=== PATIENT | female | born 1990 | race American Indian/Alaskan Native ===

== ENCOUNTER 2017-06-17 11:28 | Emergency (ER) | payer SELFPAY ==
[2017-06-17] MEDS ORDERED: TYLENOL PO ONE (12:28)
--- NOTE | 2017-06-17 16:27 | Emergency Department Report ---
HPI - General Chief Complaint: Fever Time Seen by Provider: 06/17/17 15:41 - HPI HPI: 26-year-old female presents today complaining of sore throat, body aches, headache, cough, diarrhea 4 days. Patient has tried TheraFlu and Coricidin without relief. Denies nausea, vomiting, chest pain, shortness of breath, abdominal pain. Patient complains of painful swallowing. ED Past Medical Hx - Past Medical History Previous Medical History?: No - Surgical History Past Surgical History?: No - Social History Smoking Status: Never Smoker Substance Use Type: None - Medications Home Medications: Home Medications Medication Instructions Recorded Confirmed Last Taken Type Acetamin/Codeine 120-12Mg/5 ml 5 ml PO TID PRN #150 ml 06/17/17 Unknown Rx [Tylenol/Codeine] Amoxicillin/Potassium Clav 1 each PO BID #20 tablet 06/17/17 Unknown Rx [Augmentin 875-125 Tablet] Lidocaine Viscous 2% 15 ml MM TID #90 ml 06/17/17 Unknown Rx ED Review of Systems ROS: Stated complaint: FLU SX Other details as noted in HPI Constitutional: fever, malaise. denies: chills Eyes: denies: eye pain ENT: throat pain. denies: ear pain, congestion Respiratory: cough. denies: shortness of breath, wheezing Cardiovascular: denies: chest pain, palpitations Endocrine: no symptoms reported Gastrointestinal: denies: abdominal pain, nausea, vomiting Skin: denies: rash, lesions Neurological: headache. denies: weakness, numbness, paresthesias Physical Exam - Physical Exam Vital Signs: Vital Signs 06/17/17 06/17/17 12:26 12:53 Temperature 102.6 F H Pulse Rate 105 H Respiratory 18 18 Rate Blood Pressure 121/68 O2 Sat by Pulse 100 Oximetry Physical Exam: GENERAL: The patient is well-developed and well-nourished. Appears ill. HEAD: Normocephalic. Atraumatic. No sinus tenderness to palpation. EYES: Extraocular motions are intact, PERRL. EARS: External auditory canals and tympanic membranes clear; hearing grossly intact. NOSE: Congested nasal mucosa. THROAT: Erythematous posterior pharynx. Bilateral tonsillomegaly with tonsillar exudates noted. NECK: positive for anterior cervical lymphadenopathy. CHEST/LUNGS: Clear to auscultation throughout. HEART/CARDIOVASCULAR: Regular rate and rhythm. No murmurs, rubs or gallops. ABDOMEN: Abdomen is soft, nontender. Bowel sounds normoactive. No guarding or rebound tenderness. EXTREMITIES: Peripheral pulses intact. Capillary refill less than 2 seconds. NEURO: Alert and oriented x 3. Normal gait. ED Course Vital Signs 06/17/17 06/17/17 12:26 12:53 Temperature 102.6 F H Pulse Rate 105 H Respiratory 18 18 Rate Blood Pressure 121/68 O2 Sat by Pulse 100 Oximetry ED Medical Decision Making - Lab Data Vital Signs 06/17/17 06/17/17 06/17/17 12:26 12:53 16:50 Temperature 102.6 F H Pulse Rate 105 H 102 H Respiratory 18 18 Rate Blood Pressure 121/68 117/59 Blood Pressure [Left] O2 Sat by Pulse 100 100 Oximetry 06/17/17 06/17/17 18:54 20:17 Temperature 102.8 F H 99.8 F H Pulse Rate 93 H Respiratory 18 Rate Blood Pressure Blood Pressure 125/76 [Left] O2 Sat by Pulse 97 Oximetry - Medical Decision Making 26-year-old female presents complaining of sore throat, body, headache, cough and diarrhea 4 days. Her rapid flu and rapid strep test came back negative. However based on patient's presentation she will be treated with antibiotics. Patient is in no acute distress at this time. She will be discharged home and is encouraged to follow up with a primary care provider. She will be sent home on Augmentin, Tylenol with Codeine and Viscous lidocaine and is encouraged to return to the emergency room for any worsening symptoms. Critical care attestation.: If time is entered above; I have spent that time in minutes in the direct care of this critically ill patient, excluding procedure time. ED Disposition Clinical Impression: Tonsillitis URI (upper respiratory infection) Qualifiers: URI type: unspecified URI Qualified Code(s): J06.9 - Acute upper respiratory infection, unspecified Disposition: TO HOME OR SELFCARE Is pt being admited?: No Does the pt Need Aspirin: No Condition: Stable Instructions: Tonsillitis (ED), Upper Respiratory Infection (ED) Additional Instructions: Follow with primary care provider. Alternate Tylenol and Motrin for fever and pain. Return to the emergency department if symptoms worsen. Prescriptions: Acetamin/Codeine 120-12Mg/5 ml [Tylenol/Codeine] 5 ml PO TID PRN #150 ml PRN Reason: Pain Amoxicillin/Potassium Clav [Augmentin 875-125 Tablet] 1 each PO BID #20 tablet Lidocaine Viscous 2% 15 ml MM TID #90 ml Referrals: IVONE AMOS MD [Primary Care Provider] - 3-5 Days Forms: Work/School Release Form(ED) Time of Disposition: 20:21
[2017-06-17] MEDS ORDERED: DECADRON IM ONE (17:08)
[2017-06-17] MEDS ORDERED: NORCO 5/325 PO ONE (18:00)
[2017-06-17] MEDS ORDERED: NORCO 5/325 ONE (18:01)
[2017-06-17 20:18] VITALS: BP 125/76
== END 2017-06-17 21:00 | disposition home or self-care (01) ==
LOC: ED 11:28
DX: J06.9 Acute upper respiratory infection, unspecified (principal); J03.90 Acute tonsillitis, unspecified
CPT/HCPCS: 87116; 87400; 87430; 96372; 99282; J1100